=== PATIENT | female | born 1980 | race Caucasian/White ===

== ENCOUNTER 2017-11-29 20:17 | Observation (INO) ==
--- NOTE | 2017-11-29 22:19 | Emergency Department Note ---
Disposition Clinical Impression: Primary biliary cirrhosis, Hematemesis with nausea Disposition: Admitted As Inpatient Condition: Good Referrals: Vicenta Roth CNP [Primary Care Provider] - Forms: ED Satisfaction Letter, Work/School Release Time of Disposition: 00:56 General Adult HPI - General Chief complaint: ED Abdominal Pain Stated complaint: abdominal pain Time Seen by Provider: 11/29/17 21:43 Source: patient Mode of arrival: ambulatory Limitations: no limitations Nursing Notes Reviewed: Yes Vital Signs Reviewed: Yes - History of Present Illness HPI Narrative: 37 year old woman with hx significant for primary biliary cirrhosis who presents to the ED with RUQ abdominal pain for the past 4 weeks. She states she can not get an appt with her vocational education professional and has been told to go to the ED if pain persists. She says the pain is intermittent and sharp with radiation to epigastric region, R shoulder and wraps around to R flank. She has taken ibuprofen without any relief. She has been nauseas daily and been having multiple episodes of vomiting daily to the point of hematemesis that has bright red and dark components to it. Increasing abdominal edema. Had EGD in Sep that did not find a source. Additionally, complains of subjective fever 102.5F today which she took ibuprofen, dizziness while standing. Denies diplopia, chest pain , sob, jaundice, numbness/paresthesia, dysuria, hematuria. Pt Subjective Complaint: abdominal pain Onset (ago): week(s) Location: abdomen Radiation: back Pain Severity: severe Pain Scale: 8 Quality: dull, constant Consistency: constant Improves with: nothing Worsens with: nothing Associated symptoms: Reports: fever/chills, nausea/vomiting Treatments Prior to Arrival: NSAID - Related Data Allergies Allergy/AdvReac Type Severity Reaction Status Date / Time Banana Allergy Anaphylaxis Verified 11/29/17 20:28 promethazine [From Phenergan] Allergy Anaphylaxis Verified 11/29/17 20:28 All systems ED: reviewed and negative except as stated. Constitutional: Reports: fever, chills Cardiovascular: Reports: edema (abdominal ). Denies: chest pain, palpitations, dyspnea on exertion Respiratory: Denies: dyspnea Gastrointestinal: Reports: abdominal pain, nausea, vomiting, hematemesis. Denies: diarrhea, melena, hematochezia Musculoskeletal: Reports: back pain. Denies: neck pain Past Medical History - Past Medical History Medical history: Reports: liver disease, other - Social History Smoking Status: Never smoker Alcohol use: Reports: none Drug use: Reports: none Physical Exam - General Limitations: no limitations General appearance: alert, in no apparent distress - Head Head exam: atraumatic, normocephalic, normal inspection - Eye Eye exam: Present: normal appearance. Absent: scleral icterus - ENT ENT exam: mucous membranes moist - Neck Neck exam: Present: normal inspection, trachea midline - Chest Chest inspection: Present: normal inspection, symmetric chest wall rise - Respiratory Respiratory exam: Present: normal lung sounds bilaterally - Cardiovascular Cardiovascular exam: Present: regular rate, normal rhythm, normal heart sounds, +S1, +S2 - Abdominal Exam Abdominal exam: Present: soft, tenderness, organomegaly, ascites, scar. Absent : guarding, rebound, rigidity Abdominal tenderness: Present: RUQ, epigastrium, moderate - Extremities Exam Extremities exam: Present: normal capillary refill. Absent: pedal edema - Back Exam Back exam: Present: normal inspection, tenderness. Absent: CVA tenderness (R), paraspinal tenderness, vertebral tenderness - Neurological Exam Neurological exam: Present: alert - Psychiatric Psychiatric exam: Present: normal affect - Skin Skin exam: Present: warm, dry, intact, normal color Course Course Narrative: Hx of PBC who presents with worsening RUQ pain, daily N/V with hematemesis, and subjective fever/chills who has been told to come to ED can not get appt with vocational education professional. Afebrile here, will treat nausea and pain now with metoclopramide and ketamine. Will get cbc and cmp and likely admit her for EGD tomorrow in setting of hematemesis. Pain and nausea better with metoclopramide and ketamine. Will admit to hospitalist service who accepted. Vital Signs Temperature 98.2 F 11/29/17 20:24 Pulse Rate 88 11/29/17 20:24 Respiratory Rate 16 11/29/17 20:24 Blood Pressure 116/79 11/29/17 20:24 O2 Sat by Pulse Oximetry 99 11/29/17 20:24 Temperature 98.5 F 11/29/17 21:22 Pulse Rate 66 11/29/17 21:22 Respiratory Rate 20 11/29/17 21:22 Blood Pressure 109/80 11/29/17 21:22 O2 Sat by Pulse Oximetry 100 11/29/17 21:22 Oxygen Delivery Oxygen Delivery Room Air Medical Decision Making - Lab Data Result diagrams: 11/29/17 21:36 11/29/17 21:36 Lab Results 11/29/17 11/29/17 Range/Units 21:36 21:36 WBC 7.3 (4.3-11.1) K/mcL RBC 4.61 (3.82-4.97) M/mcL Hgb 12.7 (11.5-15.4) g/dL Hct 39.1 (35.3-44.9) % MCV 84.8 (83.0-100.0) fL MCH 27.5 L (28.0-33.3) pg MCHC 32.5 (31.6-35.5) g/dL RDW 13.5 (11.5-14.5) % Plt Count 291 (140-400) K/mcL MPV 10.6 (9.4-12.4) fL Immature Gran % 0.3 (0-4) % Seg Neutrophils % 54.7 % Lymphocytes % 34.7 % Monocytes % 8.1 % Eosinophils % 1.9 % Basophils % 0.3 % Neutrophils # 4.0 (1.6-8.9) K/mcL Lymphocytes # 2.5 (0.6-4.6) K/mcL Monocytes # 0.6 (0.0-1.3) K/mcL Eosinophils # 0.1 (0.0-0.6) K/mcL Basophils # 0.0 (0.0-0.2) K/mcL Sodium 134 L (136-145) mEq/L Potassium 3.7 (3.5-5.1) mEq/L Chloride 100 (98-107) mEq/L Carbon Dioxide 25 (23-29) mEq/L BUN 10 (6-20) mg/dL Creatinine 0.89 (0.60-1.20) mg/dL Est GFR ( Amer) > 60 (> 60) Est GFR (Non-Af Amer) > 60 (> 60) BUN/Creatinine Ratio 11 (6-26) Glucose 107 H (70-105) mg/dL Calculated Osmolality 278 L (280-300) Calcium 9.1 (8.6-10.3) mg/dL Total Bilirubin 0.6 (0.3-1.0) mg/dL AST 44 H (13-39) Units/L ALT 41 (7-52) Units/L Alkaline Phosphatase 308 H (34-104) Units/L Serum Total Protein 8.4 (6.4-8.9) g/dL Albumin 3.9 (3.5-5.7) g/dL Globulin 4.5 H (2.4-3.5) g/dL Albumin/Globulin Ratio 0.9 L (1.1-2.2)
[2017-11-29] MEDS ORDERED: Metoclopramide 10 MG/2 ML VIAL IVP ONE (23:12)
[2017-11-29] MEDS ORDERED: Ketamine *HR* 20 MG in 0.9 % Sodium Chloride 100 ML IVPB ONE (23:12)
[2017-11-29 23:31] LABS: Basophils % 0.3 %; Eosinophils # 0.1 K/mcL (0.0-0.6); Eosinophils % 1.9 %; Hematocrit 39.1 % (35.3-44.9); Hemoglobin 12.7 g/dL (11.5-15.4); Immature Granulocytes % 0.3 % (0-4); Lymphocytes # 2.5 K/mcL (0.6-4.6); Lymphocytes % 34.7 %; Mean Corpuscular HGB Conc 32.5 g/dL (31.6-35.5); Mean Corpuscular Hemoglobin 27.5 pg (28.0-33.3); Mean Corpuscular Volume 84.8 fL (83.0-100.0); Mean Platelet Volume 10.6 fL (9.4-12.4); Monocytes # 0.6 K/mcL (0.0-1.3); Monocytes % 8.1 %; Platelet Count 291 K/mcL (140-400); Red Blood Count 4.61 M/mcL (3.82-4.97); Red Cell Distribution Width 13.5 % (11.5-14.5); Segmented Neutrophils % 54.7 %
[2017-11-29 23:40] LABS: Alanine Aminotransferase 41 Units/L (7-52); Albumin 3.9 g/dL (3.5-5.7); Albumin/Globulin Ratio 0.9 (1.1-2.2); Alkaline Phosphatase 308 Units/L (34-104); Aspartate Amino Transferase 44 Units/L (13-39); BUN/Creatinine Ratio 11 (6-26); Bilirubin,Total 0.6 mg/dL (0.3-1.0); Blood Urea Nitrogen 10 mg/dL (6-20); Calcium 9.1 mg/dL (8.6-10.3); Carbon Dioxide 25 mEq/L (23-29); Chloride 100 mEq/L (98-107); Globulin 4.5 g/dL (2.4-3.5); Glucose 107 mg/dL (70-105); Osmolality,Calculated 278 (280-300); Potassium 3.7 mEq/L (3.5-5.1); Sodium 134 mEq/L (136-145); Total Protein 8.4 g/dL (6.4-8.9); eGFR For Non-African Americans > 60 (> 60)
[2017-11-30] MEDS ORDERED: Pantoprazole 40 MG VIAL IVP ONE (01:32)
--- NOTE | 2017-11-30 01:41 | Emergency Department Note ---
Disposition Clinical Impression: Primary biliary cirrhosis, Hematemesis with nausea Disposition: Admitted As Inpatient Condition: Good Referrals: Vicenta Roth CNP [Primary Care Provider] - Forms: ED Satisfaction Letter, Work/School Release General Adult HPI - General Chief complaint: ED Abdominal Pain Stated complaint: abdominal pain Time Seen by Provider: 11/29/17 21:43 Source: patient Mode of arrival: ambulatory Limitations: no limitations - History of Present Illness Location: abdomen Pain Scale: 8 Quality: dull, constant Improves with: nothing Worsens with: nothing Associated symptoms: Reports: fever/chills, nausea/vomiting Treatments Prior to Arrival: NSAID - Related Data Allergies Allergy/AdvReac Type Severity Reaction Status Date / Time Banana Allergy Anaphylaxis Verified 11/29/17 20:28 promethazine [From Phenergan] Allergy Anaphylaxis Verified 11/29/17 20:28 Constitutional: Reports: fever, chills Cardiovascular: Reports: edema (abdominal ). Denies: chest pain, palpitations, dyspnea on exertion Respiratory: Denies: dyspnea Gastrointestinal: Reports: abdominal pain, nausea, vomiting, hematemesis. Denies: diarrhea, melena, hematochezia Musculoskeletal: Reports: back pain. Denies: neck pain Past Medical History - Past Medical History Medical history: Reports: liver disease, other - Social History Smoking Status: Never smoker Alcohol use: Reports: none Drug use: Reports: none Physical Exam - General Limitations: no limitations General appearance: alert, in no apparent distress Course Vital Signs Temperature 98.2 F 11/29/17 20:24 Pulse Rate 88 11/29/17 20:24 Respiratory Rate 16 11/29/17 20:24 Blood Pressure 116/79 11/29/17 20:24 O2 Sat by Pulse Oximetry 99 11/29/17 20:24 Temperature 98.5 F 11/29/17 21:22 Pulse Rate 66 11/29/17 21:22 Respiratory Rate 20 11/29/17 21:22 Blood Pressure 109/80 11/29/17 21:22 O2 Sat by Pulse Oximetry 100 11/29/17 21:22 Oxygen Delivery Oxygen Delivery Room Air Medical Decision Making - Lab Data Result diagrams: 11/29/17 21:36 11/29/17 21:36 Lab Results 11/29/17 11/29/17 Range/Units 21:36 21:36 WBC 7.3 (4.3-11.1) K/mcL RBC 4.61 (3.82-4.97) M/mcL Hgb 12.7 (11.5-15.4) g/dL Hct 39.1 (35.3-44.9) % MCV 84.8 (83.0-100.0) fL MCH 27.5 L (28.0-33.3) pg MCHC 32.5 (31.6-35.5) g/dL RDW 13.5 (11.5-14.5) % Plt Count 291 (140-400) K/mcL MPV 10.6 (9.4-12.4) fL Immature Gran % 0.3 (0-4) % Seg Neutrophils % 54.7 % Lymphocytes % 34.7 % Monocytes % 8.1 % Eosinophils % 1.9 % Basophils % 0.3 % Neutrophils # 4.0 (1.6-8.9) K/mcL Lymphocytes # 2.5 (0.6-4.6) K/mcL Monocytes # 0.6 (0.0-1.3) K/mcL Eosinophils # 0.1 (0.0-0.6) K/mcL Basophils # 0.0 (0.0-0.2) K/mcL Sodium 134 L (136-145) mEq/L Potassium 3.7 (3.5-5.1) mEq/L Chloride 100 (98-107) mEq/L Carbon Dioxide 25 (23-29) mEq/L BUN 10 (6-20) mg/dL Creatinine 0.89 (0.60-1.20) mg/dL Est GFR ( Amer) > 60 (> 60) Est GFR (Non-Af Amer) > 60 (> 60) BUN/Creatinine Ratio 11 (6-26) Glucose 107 H (70-105) mg/dL Calculated Osmolality 278 L (280-300) Calcium 9.1 (8.6-10.3) mg/dL Total Bilirubin 0.6 (0.3-1.0) mg/dL AST 44 H (13-39) Units/L ALT 41 (7-52) Units/L Alkaline Phosphatase 308 H (34-104) Units/L Serum Total Protein 8.4 (6.4-8.9) g/dL Albumin 3.9 (3.5-5.7) g/dL Globulin 4.5 H (2.4-3.5) g/dL Albumin/Globulin Ratio 0.9 L (1.1-2.2) Attestation Statement - Attestation Attestation: I examined this patient and my medical decision-making was reviewed with the Resident Physician. I agree with the documented findings, disposition and treatment plan as described except to the extent set forth below. Benign abdominal exam. Had endoscopy done a few months ago, no mention of varices, but has amanda hematemesis and coffee-ground emesis at home with a history of liver disease. Hemodynamically normal while this normal hemoglobin here, but warrants admission for evaluation and possible endoscopy.
[2017-11-30] MEDS ORDERED: OXYCODONE Oral CONC 10 MG/0.5 ML ORAL.SYG SL PRN (07:28)
[2017-11-30] MEDS ORDERED: Ondansetron 4 MG/2 ML VIAL IVP PRN (07:28)
[2017-11-30] MEDS ORDERED: Naloxone 0.4 MG/ML INJ IVP PRN (07:28)
[2017-11-30] MEDS ORDERED: Ketorolac 15 MG/ML VIAL IVP PRN (07:28)
[2017-11-30 07:50] LABS: Hematocrit 36.5 % (35.3-44.9); Hemoglobin 11.8 g/dL (11.5-15.4)
--- NOTE | 2017-11-30 08:35 | Internal Med History&Physical ---
Date of Encounter: 11/30/17 Time of Encounter: 08:00 Internal Medicine - H&P: HPI Chief complaint: N/V, hematemesis Admitted From: Home History of present illness: Ms. Vargas is a 37 year old female with past medical history of primary biliary cirrhosis who follows up with hepatology in [place] presented to the ED with nausea, vomiting, and hematemesis. She states that she had gradually increasing right upper quadrant pain for the last few weeks: sharp, nonradiating , no aggravating or relieving factors. She was taking PRN ibuprofen for that pain without much relief. Starting from yesterday, she started vomiting "a bunch " started to notice bright red blood as well as coffee-ground emesis. Denies any chest pain, shortness of breath, lightheadedness, or syncopal episodes. No cough, sputum production, jaundice, fever/chills, or sick contacts. She states that she had recent endoscopy in [place] about 2 months ago which did not reveal any varices. In the ED, she was afebrile and hemodynamically stable. Hb 12.7. She was given IV Protonix and admitted for further management. Past Med Surg Social Fam HX - Past Medical History Attestation: Yes The following information was validated with the patient. Medical history: liver disease, other Additional medical history: Kidney tumor removed, restless legs Psychiatric history: no psych history - Past Surgical History Additional surgical history: tubal, kidney tumor removed, ovarian cyst removed, knee sx, liver biopsy, upper endoscopy - Social History Smoking Status: Never smoker Alcohol use: none Drug use: none - Family History Grandmother Living Status: Still Living Hx Family Cardiac Disorders: Yes Hx Family Respiratory Disorders: Yes Internal Medicine - H&P: Meds Cholecalciferol (Vitamin D3) [Vitamin D3] 2,000 unit PO DAILY 11/30/17 [History] Ursodiol 600 mg PO BID 11/30/17 [History] rOPINIRole [Requip] 1 mg PO HS 11/30/17 [History] 3 Allergy/AdvReac Type Severity Reaction Status Date / Time Banana Allergy Anaphylaxis Verified 11/29/17 20:28 promethazine [From Phenergan] Allergy Anaphylaxis Verified 11/29/17 20:28 All Systems PM: A 10-system review of systems was performed and is negative for pertinent findings except as documented above in the HPI. - Constitutional Vitals: Temp Pulse Resp BP Pulse Ox 98.0 F 79 12 102/67 96 11/30/17 06:37 11/30/17 06:37 11/30/17 06:37 11/30/17 06:37 11/30/17 06:37 Exam: General: Alert and oriented, not in acute distress. HEENT:EOM, pupils equal, round and reactive. No conjunctival pallor or icteric sclera Cardiovascular:Normal S1 & S2, No JVD. Pulse regular. Lungs: clear to auscultation, no wheezes/rales Abdomen:Soft, minimal right upper quadrant tenderness without Sellers's. No rebound/guarding/rigidity Extremities:No deformity or swelling Neurological:Normal cognition and motor skills. Non-focal Skin:Normal color, no rash, no lesions. Pulses:Carotid and radial pulses normal +2. Rest of the physical exam is non contributory Internal Med - H&P Results - Labs CBC & Chem 7: 11/30/17 07:38 11/29/17 21:36 Labs: Short CBC 11/30/17 Range/Units 07:38 Hgb 11.8 (11.5-15.4) g/dL Hct 36.5 (35.3-44.9) % - Assessment and plan (1) Hematemesis with nausea Current Visit: Yes Status: Acute Assessment and plan: Hemoglobin 12.7 -> 11.8, remains hemodynamically stable without further episodes of hematemesis during her stay ?M-W tear, was also taking ibuprofen for her RUQ pain so PUD is also on a differential unlikely to have developed esophageal varices over the last 2 months Nothing by mouth, IV PPI twice a day, IVF H&H every 12H GI consult (2) Primary biliary cirrhosis Current Visit: Yes Status: Acute Assessment and plan: Follows outpatient at [place] Holding Ursodiol while NPO (3) Restless leg syndrome Current Visit: Yes Status: Acute Assessment and plan: Hold off on Requip (4) DVT prophylaxis Current Visit: Yes Status: Acute Assessment and plan: SCD - Time Spent With Patient Total time spent is greater than 50% in coordination of care (as documented) at patient's floor/unit and/or counseling patient:
[2017-11-30] MEDS ORDERED: 0.9 % Sodium Chloride 1,000 ML IVC SCH (08:45)
[2017-11-30] MEDS: OXYCODONE Oral CONC 10 MG/0.5 ML ORAL.SYG SL PRN ×2 (10:39→21:53)
--- NOTE | 2017-11-30 11:35 | Gastroenterology Consult Note ---
<Reilly Duckworth - Last Filed: 11/30/17 11:33> Date of Encounter: 11/30/17 Time of Encounter: 10:10 - Assessment and plan (1) Hematemesis with nausea Status: Acute Assessment and plan: Hgb 12.7 on admission and today Hgb 11.8. Plan for EGD today to r/o esophagitis, gastritis, duodenitis, PUD, MW tear, or AVM. Keep patient NPO. (2) Primary biliary cirrhosis Status: Acute Assessment and plan: Follow up with GI provider as outpatient. - Time Spent With Patient Total time spent is greater than 50% in coordination of care (as documented) at patient's floor/unit and/or counseling patient: GI History of Present Illness - Data of Consult Patient: new to practice Consult date: 11/30/17 Requesting Physician: Shekhar Chavarria MD - Consult Narrative Reason for consult: PBC, hematemesis History of present illness: Ms. Vargas is a 37 year old female with PMHx of primary biliary cirrhosis who follows up with hepatology in [place] presented to the ED with nausea, vomiting, and hematemesis. She states that she had gradually increasing right upper quadrant pain for the last few weeks: sharp, nonradiating, no aggravating or relieving factors. She was taking PRN ibuprofen for that pain without much relief. The day prior to admission, she started vomiting "a bunch" started to notice bright red blood as well as coffee-ground emesis. She states that she had recent endoscopy in [place] about 2 months ago which did not reveal any vari venkatesh. She states she has been trying to get an appointment with her GI provider, but has been unable to get in contact with the office. On admission, Hgb 12.7 and this AM Hgb 11.8. Procedures: EGD 2 months ago in [place], no varices per patient report. NSAIDs: None Anticoagulation: None Past Med Surg Social Fam HX - Past Medical History Medical history: liver disease, other Additional medical history: Kidney tumor removed, restless legs Psychiatric history: no psych history - Past Surgical History Additional surgical history: tubal, kidney tumor removed, ovarian cyst removed, knee sx, liver biopsy, upper endoscopy - Social History Smoking Status: Never smoker Alcohol use: none Drug use: none - Family History Grandmother Living Status: Still Living Hx Family Cardiac Disorders: Yes Hx Family Respiratory Disorders: Yes - Gastrointestinal Gastrointestinal: Present: as per HPI - Constitutional Constitutional: as per HPI - EENT Eyes: as per HPI Ears: Present: as per HPI Nose, mouth and throat: Present: as per HPI - Cardiovascular Cardiovascular ROS: Present: as per HPI - Respiratory Respiratory IM: Present: as per HPI - Genitourinary Genitourinary: Absent: change in color, Urinary frequency - Neurological ROS Neurological GI: Present: as per HPI - Hematologic/Lymphatic Hematologic/Lymphatic pediatric: Present: as per HPI - Musculoskeletal Musculoskeletal ROS GI: Present: as per HPI - Integumentary Integumentary GI: Present: as per HPI - Psychiatric ROS Psychiatric GI: Present: as per HPI - Endocrine Endocrine IM: Present: as per HPI - Constitutional Vitals: Temp Pulse Resp BP Pulse Ox 98.0 F 81 15 103/68 96 11/30/17 10:19 11/30/17 10:19 11/30/17 10:19 11/30/17 10:19 11/30/17 10:19 General appearance: Present: cooperative, A&O X 3, no acute distress, answers questions appropriately - Head Head exam: Present: atraumatic, normocephalic - Eye Eye exam: Present: normal appearance, sclera anicteric - ENT ENT exam: Present: mucous membranes dry - Neck Neck exam general surgery: Present: normal inspection, trachea midline - Respiratory Respiratory exam: Present: CTAB. Absent: rales, rhonchi - Cardiovascular Cardiovascular exam: Present: RRR, +S1, +S2 - GI/Abdominal GI/Abdominal exam: Present: soft, tenderness (RUQ), no peritoneal signs. Absent: distended, firm, guarding - Rectal Rectal exam: Present: deferred - Extremities Exam Extremities exam: Present: warm - Neurological Exam Neurological exam: Present: no focal deficits - Psychiatric Psychiatric exam: Present: normal affect, normal mood - Skin Skin exam: Present: dry, intact, normal color, warm Results - Labs CBC & Chem 7: 11/30/17 07:38 11/29/17 21:36 Labs: Last Result Calcium 9.1 mg/dL (8.6-10.3) 11/29/17 21:36 Entire Visit Hgb 11.8 g/dL (11.5-15.4) 11/30/17 07:38 Hct 36.5 % (35.3-44.9) 11/30/17 07:38 Total Bilirubin 0.6 mg/dL (0.3-1.0) 11/29/17 21:36 AST 44 Units/L (13-39) H 11/29/17 21:36 ALT 41 Units/L (7-52) 11/29/17 21:36 Consult Discharge Plan - Plan Instructions: Peptic Ulcer (DC), Gastritis (DC) Referrals: Vicenta Roth, ENVIRONMENTAL TEST TECHNICIAN [Primary Care Provider] - Prescriptions: RX: Omeprazole [PriLOSEC] 40 mg PO BIDAC #60 capsule. RX: Sucralfate [Carafate] 1 gm PO QIDAC #120 tablet <Larry Mcdonald - Last Filed: 12/12/17 22:12> - Time Spent With Patient Total time spent is greater than 50% in coordination of care (as documented) at patient's floor/unit and/or counseling patient: GI History of Present Illness - Data of Consult Requesting Physician: Harris Spence - Consult Narrative History of present illness: Ms. Vargas is a 37 year old female - Constitutional Vitals: Temp Pulse Resp BP Pulse Ox 98.6 F 72 15 99/64 95 12/01/17 10:07 12/01/17 10:07 12/01/17 10:07 12/01/17 10:07 12/01/17 10:07 Results - Labs CBC & Chem 7: 12/01/17 03:50 12/01/17 03:50 Labs: Last Result Calcium 8.5 mg/dL (8.6-10.3) L 12/01/17 03:50 Entire Visit Hgb 10.3 g/dL (11.5-15.4) L 12/01/17 03:50 Hct 31.2 % (35.3-44.9) L 12/01/17 03:50 Total Bilirubin 0.6 mg/dL (0.3-1.0) 11/29/17 21:36 AST 44 Units/L (13-39) H 11/29/17 21:36 ALT 41 Units/L (7-52) 11/29/17 21:36 - Attending Attestation Agree with EGD. I have personally performed a face to face evaluation on this patient. I have reviewed and agree with the care plan. History and Exam by me shows:
[2017-11-30] MEDS ORDERED: Pantoprazole 40 MG VIAL IVP SCH (13:00)
--- NOTE | 2017-11-30 13:34 | Anesthesia Evaluation PreOp ---
Date of Encounter: 11/30/17 Time of Encounter: 13:40 - Past History Planned Operation: EGD Cardiac History: Denies any Significant Hx Pulmonary History: Denies Any Significant HX BASKET OPERATOR History: Denies Any Significant HX Other Medical History: Hepatic (Biliary Cirrhosis) Anesthesia History: No Prior Anesthetic Complications : No Test: Negative Alcohol Use: none Drug use: none Medications and Allergies Cholecalciferol (Vitamin D3) [Vitamin D3] 2,000 unit PO DAILY 11/30/17 [History] Ursodiol 600 mg PO BID 11/30/17 [History] rOPINIRole [Requip] 1 mg PO HS 11/30/17 [History] 3 Allergy/AdvReac Type Severity Reaction Status Date / Time Banana Allergy Anaphylaxis Verified 11/29/17 20:28 promethazine [From Phenergan] Allergy Anaphylaxis Verified 11/29/17 20:28 - Meds/Allergy Pre-op Review Medications Reviewed: Yes Allergies Reviewed: Yes Beta Blockers on Current Med List: No Anesthesia Results - Labs 11/30/17 07:38 11/29/17 21:36 Laboratory Tests 11/29/17 11/29/17 11/30/17 21:36 21:36 07:38 Hgb 11.8 Hct 36.5 Plt Count 291 Sodium 134 L Potassium 3.7 BUN 10 Creatinine 0.89 Urine Test 11/30/17 12:02 Hgb Hct Plt Count Sodium Potassium BUN Creatinine Urine Test Negative Anesthesia Exam O2 Sat Height 1.78 m Height 1.78 m Weight 77.6 kg Weight 77.564 kg O2 Sat by Pulse Oximetry 96 O2 Sat by Pulse Oximetry 96 O2 Sat by Pulse Oximetry 96 O2 Sat by Pulse Oximetry 100 O2 Sat by Pulse Oximetry 99 Vital Signs Temp Pulse Resp BP Pulse Ox 98.2 F 88 16 116/79 99 11/29/17 20:24 11/29/17 20:24 11/29/17 20:24 11/29/17 20:24 11/29/17 20:24 Height: 5'10 Weight: 171 lbs NPO (# of Hours): MN Pain Scale: 0 - HEENT Pupil (Motor): Pupils equal, EOMI Mallampati: II Teeth: Normal Oral Opening: Greater than 3 - BASKET OPERATOR LOC: Oriented BASKET OPERATOR Motor: Normal RUE, Normal LUE, Normal RLE, Normal LLE, Normal Face BASKET OPERATOR Sensory: Normal: RUE, LUE, RLE, LLE, Face - Cardiac Rhythm: Regular Murmur: None JVD: No Carotid Bruit: No - Pulmonary Breath Sounds: bilateral Clear Respiratory Effort: Symmetrical Anesthesia Assess/Plan ASA Score: 2 Modified Marty Scale for Level of Consciousness: Cooperative, oriented, and tranquil Anesthetic Plan: MAC Monitoring Plan: Standard Monitors Recovery Plan: Other (Discussed MAC, agrees to proceed)
--- NOTE | 2017-11-30 15:08 | Anesthesia Evaluation Post Op ---
Date of Encounter: 11/30/17 Time of Encounter: 14:45 - Vital Signs Vital Signs: Vital Signs/O2 Sat/Glucose, Most Current Temp Pulse Resp BP Pulse Ox 11/30/17 14:58 98.0 F 68 12 101/66 97 11/30/17 13:53 98.3 F 80 18 120/80 99 - Lungs Lungs: Clear Ascult./Percussion - Airway Airway: Non-obstructed - Cardiovascular Regular Rate - Mental Status Mental Status: Alert & Oriented, Answers Appropriately - Pain Pain Scale: 0 - Nausea Vomiting Nausea Vomiting: Not Present - Hydration Hydration: NPO - Discharge PostOp Status: Transfer Patient to floor
[2017-11-30 16:01] LABS: Hematocrit 36.2 % (35.3-44.9); Hemoglobin 11.7 g/dL (11.5-15.4)
[2017-11-30] MEDS: Sucralfate 1 GM TABLET PO SCH ×2 (16:39→21:51)
[2017-11-30] MEDS: 0.9 % Sodium Chloride 500 ML IVC SCH (22:01)
[2017-12-01] MEDS: 0.9 % Sodium Chloride 500 ML IVC SCH (03:20)
[2017-12-01 04:27] LABS: Hematocrit 31.2 % (35.3-44.9); Hemoglobin 10.3 g/dL (11.5-15.4)
[2017-12-01 04:40] LABS: BUN/Creatinine Ratio 10 (6-26); Blood Urea Nitrogen 8 mg/dL (6-20); Calcium 8.5 mg/dL (8.6-10.3); Carbon Dioxide 23 mEq/L (23-29); Chloride 107 mEq/L (98-107); Glucose 94 mg/dL (70-105); Osmolality,Calculated 278 (280-300); Potassium 3.6 mEq/L (3.5-5.1); Sodium 135 mEq/L (136-145); eGFR For Non-African Americans > 60 (> 60)
[2017-12-01 10:08] VITALS: BP 99/64
[2017-12-01] MEDS: Sucralfate 1 GM TABLET PO SCH ×2 (10:24→12:13)
[2017-12-01] MEDS: OXYCODONE Oral CONC 10 MG/0.5 ML ORAL.SYG SL PRN (12:36)
--- NOTE | 2017-12-01 12:40 | Discharge Summary ---
- NOTES TO OUTPATIENT PROVIDER Notes to Outpatient Provider: Follow up with ground mixer in [place] Orders not resulted at time of discharge: Pending orders 11/30/17 14:34 Cytology [PTH] Routine Surgical Pathology [PTH] Routine Date of Encounter: 12/01/17 Time of Encounter: 11:00 - Discharge Diagnosis (1) Primary biliary cirrhosis Priority: Primary Status: Acute (2) Hematemesis with nausea Priority: Primary Status: Acute (3) Restless leg syndrome Priority: Secondary Status: Acute Hospital course: Ms. Vargas is a 37 year old female - Time Spent with Patient Total time spent providing and/or coordinating discharge services: - Discharge Medications Prescriptions: Omeprazole [PriLOSEC] 40 mg PO BIDAC #60 capsule. Sucralfate [Carafate] 1 gm PO QIDAC #120 tablet Home Medications: Cholecalciferol (Vitamin D3) [Vitamin D3] 2,000 unit PO DAILY 11/30/17 [History] Ursodiol 600 mg PO BID 11/30/17 [History] rOPINIRole [Requip] 1 mg PO HS 11/30/17 [History] Omeprazole [PriLOSEC] 40 mg PO BIDAC #60 capsule. 12/01/17 [Rx] Sucralfate [Carafate] 1 gm PO QIDAC #120 tablet 12/01/17 [Rx] Allergies/Adverse Reactions: 3 Allergy/AdvReac Type Severity Reaction Status Date / Time Banana Allergy Anaphylaxis Verified 11/29/17 20:28 promethazine [From Phenergan] Allergy Anaphylaxis Verified 11/29/17 20:28 Date of admission: 11/30/17 01:55 Primary care physician: ANDREIA Cárdenas - Constitutional Vitals: Temp Pulse Resp BP Pulse Ox 98.6 F 72 15 99/64 95 12/01/17 10:07 12/01/17 10:07 12/01/17 10:07 12/01/17 10:07 12/01/17 10:07 Exam: Gen.: Nonacute distress, alert and oriented 3 Extremities: No lower extremity edema Skin: Normal color - Patient Status Disposition: Home, Self-Care Condition: Good - Discharge Instructions Instructions: Peptic Ulcer (DC), Gastritis (DC) Follow Up With: Vicenta Roth CNP [Primary Care Provider] - Forms: Inpatient Work/School Release
== END 2017-12-01 14:27 | disposition home or self-care (01) ==
LOC: 3ANU 20:17 → EMEROOARM 20:17 → SUATTDRO 11-30 01:55 → 3ANU 11-30 03:04
PROVIDERS: ADMIT Family Medicine; ATTEND Hospitalist
PROC: ENDOEBX (2017-11-30 13:30)